=== PATIENT | female | born 1980 | race Two or more races ===

== ENCOUNTER 2021-02-01 20:38 | Observation (INO) | payer MEDICAID ==
[2021-02-01 22:17] LABS: Urine Amorphous Crystal FEW /hpf (None Seen); Urine Bacteria FEW /hpf (None Seen); Urine Blood 3+ /uL (Negative); Urine Hyaline Cast FEW /lpf (0 - 2); Urine Mucus FEW (None Seen); Urine Specific Gravity 1.012 (1.001-1.035); Urine WBC 16 /hpf (0 - 5)
[2021-02-01 22:19] LABS: Amphetamine Screen, Urine NEGATIVE (NEGATIVE); Barbiturate Scree,Urine NEGATIVE (NEGATIVE); Benzodiazephine Screen, Urine NEGATIVE (NEGATIVE); Cannabinoid Screen, Urine NEGATIVE (NEGATIVE); Cocaine Screen, Urine NEGATIVE (NEGATIVE); Opiate Scree,Urine NEGATIVE (NEGATIVE); Phencyclidine Screen, Urine NEGATIVE (NEGATIVE)
[2021-02-01] MEDS ORDERED: PREN-96 PO (23:54)
[2021-02-01] MEDS ORDERED: ASPI-543 PO (23:54)
== END 2021-02-02 00:05 | disposition home or self-care (01) ==
LOC: ER 20:41 → LDRP 20:54
PROVIDERS: ADMIT Specialist; ATTEND Specialist
DX: O46.93 Antepartum hemorrhage, unspecified, third trimester (principal); O23.43 Unspecified infection of urinary tract in pregnancy, third trimester; O16.3 Unspecified maternal hypertension, third trimester; O09.523 Supervision of elderly multigravida, third trimester; Z87.19 Personal history of other diseases of the digestive system; Z3A.29 29 weeks gestation of pregnancy
CPT/HCPCS: 59025; 76805; 76817; 80307; 81001; 81002; 99284; G0378